=== PATIENT | female | born 1995 | race Hispanic/Latino ===

== ENCOUNTER 2022-08-12 05:04 | Emergency (ER) | payer BC ==
[~2022-08-12] VITALS: Ht 162.6 cm; Wt 47.6 kg
[2022-08-12] MEDS ORDERED: SODIUM CHLORIDE 0.9% 1000ML 1,000 ML IV ONE (05:15)
[2022-08-12] MEDS ORDERED: ACETAMINOPHEN 325 MG TAB PO ONE (05:15)
[2022-08-12] MEDS ORDERED: ACETAMINOPHEN 325 MG TAB ONE (05:25)
[2022-08-12 05:26] LABS: BASOPHILS % 0.2 % (0.0-1.0); EOSINOPHILS % 0.2 % (0.0-6.0); HEMATOCRIT 37.3 % (34.2-44.1); LYMPHOCYTES # (AUTO) 0.6 (1.0-3.2); LYMPHOCYTES % 6.1 % (18.0-39.1); MEAN CORPUSCULAR HEMOGLOBIN 32.7 pg (28-32); MEAN CORPUSCULAR HGB CONC 34.9 g/dL (31-35); MONOCYTES # (AUTO) 0.8 (0.2-0.8); MONOCYTES % 8.3 % (4.4-11.3); NEUTROPHILS # (AUTO) 7.6 (2.1-6.9); NEUTROPHILS % 84.8 % (38.7-80.0); PLATELET COUNT 180 x10e3/uL (140-360); RED BLOOD COUNT 3.97 x10e6/uL (3.6-5.1); RED CELL DISTRIBUTION WIDTH 10.8 % (11.7-14.4)
[2022-08-12] MEDS ORDERED: SODIUM CHLORIDE 0.9% 1000ML 1,000 ML ONE (05:26)
[2022-08-12] MEDS ORDERED: CEFTRIAXONE 1 GM VIAL ONE (05:27)
[2022-08-12 05:42] LABS: CLARITY,URINE CLOUDY (CLEAR); COLOR,URINE YELLOW (YELLOW); LEUKOCYTE ESTERASE ,URINE SMALL (NEGATIVE); NITRITE,URINE NEGATIVE (NEGATIVE); PROTEIN,URINE DIPSTICK 1+ (NEGATIVE)
[2022-08-12 05:43] LABS: KETONES,URINE 2+ (NEGATIVE); URINE UROBILINOGEN 0.2 mg/dL (0.2 - 1)
[2022-08-12 05:50] LABS: BACTERIA,URINE FEW /HPF; EPITHELIAL CELLS,URINE MODERATE /LPF; WBC,URINE (MAN) >50 /HPF (0-5)
[2022-08-12 05:51] LABS: ALBUMIN 3.6 g/dL (3.5-5.0); ANION GAP 13.4 mmol/L (8-16); CALCIUM 8.5 mg/dL (8.4-10.2); CREATININE, SERUM 0.7 mg/dL (0.57-1.11); POTASSIUM 3.4 mmol/L (3.5-5.1)
[2022-08-12] MEDS ORDERED: CEFDINIR300 MG PO (05:56)
== END 2022-08-12 09:04 | disposition home or self-care (01) ==
LOC: ER 05:11
DX: R50.9 Fever, unspecified (principal); N12 Tubulo-interstitial nephritis, not specified as acute or chronic; R30.0 Dysuria
CPT/HCPCS: 36415; 74176; 80053; 81001; 81025; 83605; 85025; 87040; 87086; 99284; J0696; J7030